=== PATIENT | female | born 1990 | race Two or more races ===

== ENCOUNTER 2024-04-07 17:15 | Emergency (ER) | payer MEDICAID, SELFPAY ==
[2024-04-07 17:16] VITALS: BMI 28.3
[2024-04-07 17:22] VITALS: BP 136/84; PULSE 55; RESP 16; TEMP 37.1; O2SAT 100
--- NOTE | 2024-04-07 17:45 | PD.EDRME ---
Rapid Medical Screening Exam [facility] Arrival date/time: 04/07/24 17:15 This is a 34-year-old female that comes into the emergency room with complaints of urinary frequency and urgency. Patient denies dysuria. Patient was just diagnosed with a UTI at the clinic. Patient was prescribed Macrobid and has been taking it for 2 days. Patient states she has had no relief in her symptoms. Patient also complains of low back pain and lower abdominal pain. Patient is on blood thinners because of an abnormal gene and was told that she had to be on blood thinners for life. I have greeted and performed a focused initial assessment of this patient. Initial appropriate labs ordered at this time. A comprehensive ED assessment and evaluation of the patient and analysis of all test and completion of medical decision making process will be conducted by additional ED provider. Chief Complaint: Abdominal Pain Time Seen by Provider: 04/07/24 17:36 Vital signs: Vital Signs Temperature 98.7 F 04/07/24 17:22 Pulse Rate 55 L 04/07/24 17:22 Respiratory Rate 16 04/07/24 17:22 Blood Pressure 136/84 H 04/07/24 17:22 Pulse Oximetry (%) 100 04/07/24 17:22 Oxygen Delivery Method Room Air 04/07/24 17:22 Vital signs reviewed by provider: Yes
[2024-04-07 18:21] LABS: Collection Type, Urine Voided
[2024-04-07 18:29] LABS: Bilirubin,Urine Negative (Negative); Blood,Urine Negative (Negative); Clarity,Urine Clear (Clear/Hazy); Color,Urine Colorless (Lt Yel-Yel); Culture Indicated,Urine Not Indicated; Glucose, Urine Negative (Negative); Ketones,Urine Negative (Negative); Leukocyte Esterase,Urine Positive (Negative); Nitrite,Urine Negative (Negative); Protein,Urine Negative (Neg - Trace); RBC,Urine 3 /hpf (0-3); Specific Gravity,Urine 1.008 (1.001-1.035); Squamous Epithelial Cell,Urine 1 /hpf (0-5); Urobilinogen,Urine Negative mg/dL (0.0-1.0); WBC,Urine 3 /hpf (0-5)
--- NOTE | 2024-04-07 19:14 | XR_ITS ---
Examination: CT abdomen and pelvis without contrast. Coronal 3-D reconstructions. Sagittal 2-D reconstructions. Date and time of exam:April 07, 2024 2114 hrs. Indications: Abdominal pain right-sided flank pain today CTDI: vol (mGy): 8.30 DLP: (mGycm): 462 Technique: Axial images of the abdomen have been obtained, 3 mm slice thickness Intravenous contrast material has not been administered. Low dose protocols were performed. One or more of the following dose reduction techniques were used; automated exposure control, adjustment of the mA and/or KV according to patient size, use of iterative reconstruction technique. Findings: No focal liver or splenic lesions Absent gallbladder No pancreatic or adrenal mass No renal or ureteral calculi, no hydronephrosis Aorta normal size No bowel obstruction No pericecal inflammatory change No diverticulitis No bladder mass or bladder calculi Solid mass in the pelvis posterior to the uterus, axial image 173, measuring 4 cm The osseous structures are intact Impression: No renal or ureteral calculi, no hydronephrosis Solid mass in the pelvis posterior to the uterus, 4 cm Recommend pelvic sonography follow-up
[2024-04-07 19:49] LABS: Basophils # (Auto) 0.1 Thou/mm3 (0.0-0.2); Basophils % (Auto) 1 % (0-2.5); Eosinophils # (Auto) 0.1 Thou/mm3 (0.0-0.5); Eosinophils % (Auto) 1 % (0-10); Hematocrit 38.6 % (36.0-46.0); Hemoglobin 13.2 g/dL (12.0-16.0); Immature Granulocytes % (Auto) 0 % (0-0); Immature Granulocytes Auto 0.01 Thou/mm3 (0.00-0.00); Lymphocytes # (Auto) 1.4 Thou/mm3 (1.0-4.8); Lymphocytes % (Auto) 20 % (10-50); Mean Corpuscular HGB Conc 34.2 g/dl (31.0-37.0); Mean Corpuscular Hemoglobin 28.9 pg (25.0-35.0); Mean Corpuscular Volume 85 fL (80-100); Monocytes # (Auto) 0.7 Thou/mm3 (0.0-0.8); Monocytes % (Auto) 10 % (0-12); Neutrophils # (Auto) 4.8 Thou/mm3 (1.8-7.7); Neutrophils % (Auto) 69 % (37-80); Nucleated Red Blood Cell % 0 /100 WBC (0); Platelet Count 186 Thou/mm3 (140-440); RDW Standard Deviation 44.6 fL (36.4-46.3); Red Blood Count 4.57 Miln/mm3 (4.00-5.20); White Blood Count 6.9 Thou/mm3 (3.6-11.0)
[2024-04-07] MEDS: HYDROcodone/APAP 5/325 TABLET 1 TAB PO (19:51)
[2024-04-07 20:11] LABS: Alanine Aminotransferase 13 U/L (10-49); Albumin, Serum 4.5 gm/dL (3.5-5.0); Albumin/Globulin Ratio 1.4 (1.2-2.2); Alkaline Phosphatase 83 U/L (46-116); Anion Gap 6 (7-16); Aspartate Amino Transferase 15 U/L (0-34); BUN/Creatinine Ratio 11 Ratio (12-20); Bilirubin,Total 0.5 mg/dL (0.3-1.2); Blood Urea Nitrogen 9 mg/dL (9-23); Calcium 9.9 mg/dL (8.3-10.6); Calcium (Corrected) 9.9 mg/dL (8.5-10.1); Carbon Dioxide 27.9 mMol/L (20.0-31.0); Chloride 107 mMol/L (98-107); Creatinine (Component) 0.8 mg/dL (0.6-1.3); Estimated Creatinine Clearance 93.7 mL/min (>60); Globulin 3.2 gm/dL (2.3-3.5); Glucose 89 mg/dL (74-106); Osmolality,Calculated 278 (275-295); Potassium 4.2 mMol/L (3.4-5.1); Sodium 141 mMol/L (136-145); Total Protein 7.7 gm/dL (5.7-8.2); eGFR > 60 See Note
[2024-04-07 20:31] LABS: HCG,Qualitative Serum Negative
--- NOTE | 2024-04-08 | XR_ITS ---
Examination: Pelvic ultrasound, transabdominal, complete Technique: Transabdominal ultrasound of the pelvis performed using grayscale imaging Date and time of exam: April 07, 2024 1150 hours INDICATIONS: Pelvic pain radiating to the back beginning 3 days ago FINDINGS: Uterus 9.6 x 3.5 x 6.9 cm Posterior uterine body mass 5.6 x 3.9 cm Endometrial stripe 0.2 cm Right ovary 3.2 cm arterial flow 24 mm cyst Left ovary 3.3 cm arterial flow IMPRESSION: Vascular uterine body mass 5.6 x 3.4 x 3.9 cm, recommend 6 month follow-up transvaginal pelvic sonography
--- NOTE | 2024-04-08 01:36 | PRELIM_ITS ---
Pelvic ultrasound (transabdominal). April 07, 2024 at 2350 hours Clinical history: Pelvic mass. Findings: The uterus is anteverted, measuring 9.6 x 3.4 x 6.9 cm. A hypoechoic mass is seen in the posterior aspect of the uterus, measuring 5.6 x 3.4 x 3.9 cm. The endometrium is unremarkable and measures 0.2 cm. The right ovary measures 3.2 x 2.5 x 3.6 cm and demonstrates a cyst/dominant follicle, measuring 1.9 x 1.2 x 2.4 cm. The left ovary measures 3.3 x 1.8 x 2.8 cm. Both ovaries demonstrate color flow and spectral waveforms on Doppler evaluation. There is no adnexal mass. A small amount of free fluid is seen in the posterior cul-de-sac. Impression: Hypoechoic mass in the posterior aspect of the uterus, likely representing a fibroid. Other findings as described above. Report Electronically Signed By: Tahir Alfred 04/08/2024 1:36:45 AM [EST]
--- NOTE | 2024-04-08 01:54 | EDNOTE_ITS ---
ED Abdominal Pain RME/HPI General Chief Complaint: Abdominal Pain Stated complaint: ABD PAIN RADIATING TO BACK x 2 DAYS Time seen by provider: 04/07/24 17:36 Arrival date/time: 04/07/24 17:15 34-year-old female with past medical history of abnormal gene and on blood thinners presents emergency department complaining of dysuria and right pelvic pain for several days. Patient reports was recently on Macrobid antibiotic for UTI with no relief of symptoms. Patient denies any fever, chills, vomiting, vaginal bleeding, or any other associated symptom. Limitations: no limitations RME / HPI RME / HPI narrative: 04/07/24 17:15 This is a 34-year-old female that comes into the emergency room with complaints of urinary frequency and urgency. Patient denies dysuria. Patient was just diagnosed with a UTI at the clinic. Patient was prescribed Macrobid and has been taking it for 2 days. Patient states she has had no relief in her symptoms. Patient also complains of low back pain and lower abdominal pain. Patient is on blood thinners because of an abnormal gene and was told that she had to be on blood thinners for life. I have greeted and performed a focused initial assessment of this patient. Initial appropriate labs ordered at this time. A comprehensive ED assessment and evaluation of the patient and analysis of all test and completion of medical decision making process will be conducted by additional ED provider. Related Data Home Medications ?Medication ?Instructions ?Recorded ?Confirmed rivaroxaban 20 mg tablet (Xarelto) 20 mg PO DAILY 03/3104/18/23 Previous Rx's ?Medication ?Instructions ?Recorded warfarin 5 mg tablet 5 mg PO QDAY #60 tabs Allergies Allergy/AdvReac Type Severity Reaction Status Date / Time No Known Allergies Allergy Verified 04/07/24 17:17 Review of Systems Review of Systems Systems Reviewed: All systems reviewed, normal except as documented Constitutional Constitutional: Reports system reviewed and no additional complaints, except as documented, Denies body ache(s), Denies chills and Denies fever(s) Eyes Eyes: Reports system reviewed and no additional complaints, except as documented and Denies change in vision ENT Ears, Nose, Mouth, and Throat: Reports system reviewed and no additional complaints, except as documented, Denies disequilibrium, Denies dizziness, Denies sore throat and Denies vertigo Cardiovascular Cardiovascular: Reports system reviewed and no additional complaints, except as documented, Denies chest pain and Denies dyspnea Respiratory Respiratory: Reports system reviewed and no additional complaints, except as documented, Denies chest congestion, Denies cough and Denies dyspnea Gastrointestinal Gastrointestinal: Reports system reviewed and no additional complaints, except as documented, Denies abdominal pain, Denies nausea and Denies vomiting Genitourinary Genitourinary: Reports pelvic pain and Reports other (Dysuria) Musculoskeletal Musculoskeletal: Reports system reviewed and no additional complaints, except as documented, Denies abnormal gait and Denies arthralgias Integumentary/Breasts Skin/Breast: Reports system reviewed and no additional complaints, except as documented, Denies erythema, Denies rash and Denies wounds Neurologic Neurologic: Reports system reviewed and no additional complaints, except as documented, Denies abnormal gait, Denies disequilibrium, Denies dizziness and Denies vertigo Past Medical History Past Medical History NEUROLOGIC: Negative Neurological Disorders or Seizures CARDIAC: Positive Deep Vein Thrombosis; Negative Cardiac Disorders or Congestive Heart Failure RESPIRATORY: Negative Chronic Obstructive Pulmonary Disease (COPD) or Asthma GASTROINTESTINAL: Positive Gastrointestinal Disorders and Gall Bladder Disease (removal); Negative Hepatitis or Colorectal Cancer GENITOURINARY: Negative Genitourinary Disorders or Renal Disease REPRODUCTIVE: Positive Previous Pregnancies; Negative Breast Cancer, Endometriosis or Pelvic Inflammatory Disease MUSCULOSKELETAL: Positive Fractures; Negative Musculoskeletal Disorders or Bone Cancer ENDOCRINE: Negative Endocrine Disorders, Diabetes Mellitus Type 1 or Diabetes Mellitus Type 2 HEMATOLOGIC: Positive Blood Disorders and Clotting Problems; Negative Sickle Cell Disease OTHER HISTORY: Positive Hospitalization and Chicken Pox; Negative Autoimmune Disease, Down Syndrome, Developmental Delay, Shingles, Falls, Blood Transfusions, Blood Transfusion Reaction, Anesthesia Reactions, Organ Transplant, Chemotherapy, Radiation Therapy, Hyperbaric Therapy, MRSA, VRSA, Vancomycin-Resistant Enterococci, Clostridium Difficile, Cancer, Breast Cancer, Cervical Cancer, Colorectal Cancer, Lung Cancer or Ovarian Cancer Family History FAMILY HISTORY: Positive Family Cancer and Family Surgery; Negative Family Psychiatric Problems, Family Respiratory Disorders, Family Cardiac Disorders, Family Gastrointestinal Problems or Family Anesthesia Reaction Surgical History SURGICAL: Negative Cardiac Surgery, Endocrine Surgery, Ear Surgery, Nephrectomy, Joint Replacement, Neurologic Surgery, Mastectomy, Lumpectomy, Hysterectomy, Tubal Ligation, Section or Organ Transplant Social History SMOKING STATUS: Never smoker ED Exam General Limitations: Present no limitations General appearance: Present alert and in no apparent distress Head Head exam: Present atraumatic Eye Eye exam: Present normal appearance, PERRL and EOMI ENT ENT exam: Present normal exam, normal oropharynx and mucous membranes moist Neck Neck exam: Present normal inspection, full ROM and trachea midline Chest Chest inspection: Present normal inspection and symmetric chest wall rise Respiratory Respiratory exam: Present normal lung sounds bilaterally Cardiovascular Cardiovascular exam: Present regular rate, normal rhythm and normal heart sounds Abdominal Exam Abdominal exam: Present soft and normal bowel sounds Extremities Exam Extremities exam: Present normal inspection and full ROM Back Exam Back exam: Present normal inspection and full ROM Neurological Exam Neurological exam: Present alert, oriented X3 and CN II-XII intact Psychiatric Psychiatric exam: Present normal affect and normal mood Skin Skin exam: Present warm, dry, intact and normal color Course Quality Measures none Orders Category Date Time Status CT abdomen pelvis wo con Stat Exams 04/07/24 19:14 Completed US pelvic complete Stat Exams 04/08/24 00:00 Taken CBC Stat Lab 04/07/24 19:39 Completed CMP [Comprehensive Metabolic Panel] Stat Lab 04/07/24 19:39 Completed HCG,Qualitative Serum Stat Lab 04/07/24 19:39 Completed Urinalysis, C/S if Indicated Stat Lab 04/07/24 17:50 Completed Urine Culture Stat Lab 04/07/24 17:50 Received HYDROcodone*/APAP 5/325 [[place] 5/325] Med 04/07/24 19:26 Discontinued 1 tab PO X1 ONE Ibuprofen Tab [Motrin Tab] Med 04/07/24 17:45 Discontinued 800 mg PO X1 ONE Vital Signs Vital signs: Vital Signs Temperature 98.7 F 04/07/24 17:22 Pulse Rate 55 L 04/07/24 17:22 Respiratory Rate 16 04/07/24 17:22 Blood Pressure 136/84 H 04/07/24 17:22 Pulse Oximetry (%) 100 04/07/24 17:22 Oxygen Delivery Method Room Air 04/07/24 17:22 100% room air within normal limits Abdominal Pain MDM MDM Narrative MDM Narrative:: 34-year-old female with past medical history of abnormal gene and on blood thi nners presents emergency department complaining of dysuria and right pelvic pain for several days. Patient reports was recently on Macrobid antibiotic for UTI with no relief of symptoms. Patient denies any fever, chills, vomiting, vaginal bleeding, or any other associated symptom. CBC was unremarkable for any leukocytosis or anemia. CMP was also unremarkable for any elevated LFTs or gross electrolyte abnormalities. CT abdomen solid mass to the pelvis and recommended ultrasound. Ultrasound pelvis impression hypoechoic mass in the posterior aspect of the uterus likely representing a fibroid with small amount of free fluid seen in the posterior cul-de-sac. Patient reported significant improvement in pain and symptoms after was given pain medication. Patient instructed to follow-up with primary care provider and request referral to [facility] which she reports she sees Dr Johnson. Instructed to return to emergency department for any worsening symptoms or as needed. Patient data External records reviewed:: [facility] previous records Clinical information provided by:: patient Social determinants that could affect healthcare access:: none Patient has the following chronic illnesses:: See chart How is presenting disease/condition affected by chronic disease/condition?: uneffected by Evaluation data The following diagnostics were reviewed and interpreted by me:: lab results and radiology exam(s) Lab and/or radiology exams considered but not ordered:: Ordered Interpretation Summary: Interpreted by me Medications / Prescriptions Medications or Prescriptions considered but not ordered:: Ordered Medication administrations:: Medication Administration History Discontinued Medications Hydrocodone Bitart/Acetaminophen (Hydrocodone/Apap 5/325 Tablet) 1 tab PO X1 ONE Stop: 04/07/24 19:27 Last Admin: 04/07/24 19:51 Dose: 1 tab Documented By: SHANNON Ibuprofen (Ibuprofen Tab 400 Mg Tablet) 800 mg PO X1 ONE Stop: 04/07/24 17:46 Last Admin: 04/07/24 17:57 Dose: Not Given Documented By: SHANNON Non-Admin Reason: Patient Refused Give Consultations Consultation(s) initiated? (list below): No Diagnosis Differential diagnosis abdominal pain: abdominal pain, acute appendicitis, calculus of kidney, constipation, diverticulitis, endometriosis, gastroenteritis, pancreatitis and small bowel obstruction Most likely diagnosis given after review of the tests above:: Uterine fibroids Admission Indicated Admission indicated?: not indicated Admission Request Was there a request for admission?: No Disposition Plan Disposition Plan: Discharge Discharge Attestation Discharge Attestation: The patient and all family members were given an opportunity to ask questions and understood the discharge instructions. Discharge instructions specifically effects, indications for sooner follow up or return to the emergency department, and the expected course of current diagnosis. Patient condition: Stable Discharge Plan Plan Patient Disposition: HOME (Self Care) Disposition Comment: Stable Prescriptions/Referrals Prescriptions/Med Rec: No Action Xarelto 20 mg tablet 20 mg PO DAILY Patient Comments: take 1 tablet by mouth once daily warfarin 5 mg tablet 5 mg PO QDAY MDD 1 Qty: 60 0RF Referrals: No Primary/Family,Physician [Primary Care Provider] - In 1 week Problem List Clinical Impression: Fibroid, uterine Patient/Caregiver Discharge Instructions Discharge Activity: activity as tolerated Education Materials: ED Uterine Fibroids Additional Instructions: Take Tylenol as needed for pain. Follow-up with primary care provider request referral to [facility] as discussed. Return to emergency department for any worsening symptoms or as needed. Print Language: German Stand Alone Forms: Juliette Award Info., Patient Portal Info Letter PA/CONTROL OPERATOR Supervising Physician PA/CONTROL OPERATOR Supervising Physician: Dr. Hardy
[2024-04-08 02:04] VITALS: RESP 18
== END 2024-04-08 02:05 | disposition home or self-care (01) ==
PROVIDERS: Nurse Practitioner Family; Emergency Provider Emergency Medicine
DX: D25.9 Leiomyoma of uterus, unspecified (principal)
CPT/HCPCS: 36415; 74176; 76856; 80053; 81001; 84703; 85025; 87086; 99284; A9270

== ENCOUNTER 2024-04-16 10:30 | Day surgery (SDC) | payer MEDICAID, SELFPAY ==
--- NOTE | 2024-04-10 09:28 | ESHP_ITS ---
RE: MISA SMITH : 1990 DATE OF ADMISSION: 04/16/2024 HISTORY OF PRESENT ILLNESS: This is a 34-year-old 2, para 2 with acute onset of right pelvic pain who is found to have a right adnexal mass and is presenting for surgical removal. The patient has a history of a prothrombin gene mutation increasing her risk for coagulopathy and she has a history of a deep vein thrombosis. The patient normally takes warfarin 10 mg daily; however, her last dosing in preparation for her surgery was on 04/06/2024. The patient in her imaging also appears to have a hematometria. She has a history of an endometrial ablation with amenorrhea as a result. ALLERGIES: NO KNOWN DRUG ALLERGIES. MEDICATIONS: Warfarin 10 mg one p.o. daily. 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 The patient's BRCA 1 and 2 gene mutation was negative. Asthma. PAST SURGICAL HISTORY: Laparoscopic cholecystectomy and herniorrhaphy. 2018, hysteroscopy, fractional dilatation and curettage and NovaSure endometrial ablation. FAMILY HISTORY: Mother, ovarian cancer. Maternal grandmother, breast cancer. OBSTETRIC HISTORY: Two previous full-term normal vaginal deliveries. REVIEW OF SYSTEMS: She denies any chest pain, palpitations, cough, fever, shortness of breath or lower extremity pain. PHYSICAL EXAMINATION: VITAL SIGNS: Blood pressure is 110/70, heart rate 88, respirations 18, temperature 98.2. HEENT: Oropharynx and sclerae are clear. LUNGS: Clear to auscultation bilaterally. HEART: Regular rate and rhythm. ABDOMEN: Nontender. Old scars noted. EXTREMITIES: Nontender. SKIN: No gross rashes or lesion. NEUROLOGIC: No focal deficit. ASSESSMENT AND PLAN: Acute pelvic pain, right adnexal mass, hematometria. Plan is diagnostic laparoscopy, possible laparotomy, right ovarian cystectomy, possible oophorectomy, hysteroscopy, fractional dilatation and curettage, evacuation of hematometria. Informed consent was obtained. The patient made aware of the risks, complications, alternatives, and benefits of the proposed procedure. She agrees. She is aware of the risk of injury to bowel or bladder, uterus, ureters, pulmonary embolism, deep vein thrombosis, injury to the vessels of the abdominal wall, hematoma, abscess, wound infection, wound dehiscence, pelvic infection, reoperation, repair, injury to internal organs, anesthesia complications, the possibility that a laparotomy needs to be performed to complete the procedure or control bleeding, and the possibility the procedure is not able to be completed due to severe adhesions or technical difficulties. DT: 07:19:22 TT: 09:28:00 Ref: [id number] - TID: [id number] MTDFranck
[2024-04-10 12:41] VITALS: BMI 28.8
[2024-04-11 05:43] LABS: Basophils % (Auto) 1 % (0-2.5); Eosinophils # (Auto) 0.2 Thou/mm3 (0.0-0.5); Eosinophils % (Auto) 3 % (0-10); Hematocrit 42.9 % (36.0-46.0); Hemoglobin 14.4 g/dL (12.0-16.0); Immature Granulocytes % (Auto) 0 % (0-0); Immature Granulocytes Auto 0.02 Thou/mm3 (0.00-0.00); Lymphocytes % (Auto) 36 % (10-50); Mean Corpuscular HGB Conc 33.6 g/dl (31.0-37.0); Mean Corpuscular Hemoglobin 28.5 pg (25.0-35.0); Mean Corpuscular Volume 85 fL (80-100); Monocytes # (Auto) 0.5 Thou/mm3 (0.0-0.8); Monocytes % (Auto) 9 % (0-12); Neutrophils # (Auto) 2.9 Thou/mm3 (1.8-7.7); Neutrophils % (Auto) 52 % (37-80); Nucleated Red Blood Cell % 0 /100 WBC (0); Platelet Count 205 Thou/mm3 (140-440); RDW Standard Deviation 43.8 fL (36.4-46.3); Red Blood Count 5.05 Miln/mm3 (4.00-5.20); White Blood Count 5.6 Thou/mm3 (3.6-11.0)
[2024-04-11 06:08] LABS: Alanine Aminotransferase 12 U/L (10-49); Albumin, Serum 4.8 gm/dL (3.5-5.0); Albumin/Globulin Ratio 1.5 (1.2-2.2); Alkaline Phosphatase 85 U/L (46-116); Anion Gap 7 (7-16); Aspartate Amino Transferase 13 U/L (0-34); BUN/Creatinine Ratio 13 Ratio (12-20); Beta HCG,Quantitative < 1 mIU/mL (<5.0); Bilirubin,Total 1.1 mg/dL (0.3-1.2); Blood Urea Nitrogen 10 mg/dL (9-23); Calcium 9.9 mg/dL (8.3-10.6); Calcium (Corrected) 9.9 mg/dL (8.5-10.1); Carbon Dioxide 28.6 mMol/L (20.0-31.0); Chloride 105 mMol/L (98-107); Creatinine (Component) 0.8 mg/dL (0.6-1.3); Estimated Creatinine Clearance 94.5 mL/min (>60); Globulin 3.2 gm/dL (2.3-3.5); Glucose 93 mg/dL (74-106); Osmolality,Calculated 280 (275-295); Sodium 141 mMol/L (136-145); eGFR > 60 See Note
[2024-04-11 06:43] LABS: INR 2.1 (0.9-1.3); Partial Thromboplastin Time 35.8 Seconds (22.0-36.0); Prothrombin Time 21.4 Seconds (9.0-12.2)
--- NOTE | 2024-04-12 15:00 | SUR.PREOP ---
Pt notified to come in at 1200 Monday for surgery.
[2024-04-16] VITALS (7 sets, daily range): BP systolic 102–140; BP diastolic 58–72; PULSE 55–77; RESP 12–20; TEMP 36.2–36.6; O2SAT 99–100; BMI 29.0
[2024-04-16 11:37] LABS: Partial Thromboplastin Time 25.1 Seconds (22.0-36.0); Prothrombin Time 11.3 Seconds (9.0-12.2)
--- NOTE | 2024-04-16 14:34 | SUR.PHASEI ---
pt received from OR in recovery bay 4. pt asleep but responds to voice, breathing unlabored on oxymask 8l. v/s stable. pt dressing dermabond x3 to abd cdi. report received from David Kaufman and Dr. Landa.
[2024-04-16] MEDS: fentaNYL CIT INJ 50 mCg/ML AMP 2ML IV (14:52)
--- NOTE | 2024-04-16 14:55 | SUR.PHASEI ---
pt able to toelrate oral fludids without difficulty swallowing or nausea/vomiting.
--- NOTE | 2024-04-16 15:53 | SUR.PHASEII ---
pt awake and alert, breathing unlabored on room air. v/s stable. pt dressing to abd x3 cdi. pt able to ambulate to wheelchair with steady gait. d/c instructions given with mother Aliza in room, all questions answered. pt d/c via wheelchair with all belongings.
--- NOTE | 2024-04-17 08:16 | ESOP_ITS ---
RE: MISA SMITH : 1990 DATE OF OPERATION: 04/16/2024 PREOPERATIVE DIAGNOSES: Right ovarian cyst and hematometra. POSTOPERATIVE DIAGNOSES: Right ovarian cyst and hematometra. PROCEDURES PERFORMED: Diagnostic laparoscopy, right ovarian cystectomy, and endocervical dilation and evacuation of hematometra. SURGEON: Ab Johnson DO EQUESTRIAN TRAINER: TREVOR Hu ANESTHESIA: General. ANESTHESIOLOGIST: Otilio Landa MD ESTIMATED BLOOD LOSS: 10 mL. COMPLICATIONS: None. COUNTS: Correct. PATHOLOGY: Right ovarian cyst. FINDINGS: A 5 x 5 cm right hemorrhagic ovarian cyst and possible endometrioma. A 20 mL of hemorrhagic fluid evacuated from the uterine cavity with dilation of the endocervix. Normal-appearing uterus, bilateral fallopian tubes and left ovary. No pelvic adhesions. Endocervix was stenotic. When dilated, the blood in the uterine cavity drained. DESCRIPTION OF PROCEDURE: After appropriate informed consent was obtained and the patient was made aware of the risks, complications, alternatives and benefits of the proposed procedure, she was taken to the operating room where she underwent induction of general anesthesia. She was placed in the dorsal lithotomy position. She was prepped and draped in the usual sterile fashion. A timeout was performed. A speculum was placed in the vagina. Single-tooth tenaculum was used to grasp the anterior lip of the cervix. The cervix was dilated to 5 mm and the hematometra was evacuated. The [place] uterine manipulator was placed. Attention was then turned to the abdomen where the physician regowned and gloved and a 5 mm incision was made in the umbilical fold. With tenting up of the abdomen, a Veress needle was inserted. Saline confirmed intra-abdominal placement. Artificial pneumoperitoneum was created to 12 mmHg. The trocar was inserted. The laparoscope connected with video camera was then utilized to visualize the pelvis. A second and third incision was made in the midline 2 cm above the symphysis pubis. A 10-mm incision was made and a 10- mm trocar was inserted under direct visualization of the laparoscope. Attention was then turned to the left lower quadrant where a 5-mm incision was made and through this 5 mm incision, a 5 mm trocar was inserted under direct visualization of the laparoscope. Using the Harmonic scalpel 1136 nicole, the right ovarian cystectomy was performed and the specimen was removed through the Endopouch and submitted to pathology. Hemostasis was achieved. The pelvis was irrigated with normal saline solution and the fluid evacuated. The fascia was closed with 2-0 Vicryl and the incisions were closed with 4-0 Monocryl after the carbon dioxide was evacuated. Each incision was infiltrated with Marcaine 0.5% with epinephrine. Attention was then turned to the vagina where the uterine manipulator was removed as well as the tenaculum on the anterior lip of the cervix. There was no bleeding at the end of the procedure. She was reversed from general anesthesia in the supine position and transferred to the recovery room in stable condition. She tolerated the procedure well. Counts were correct. I discussed with the patient's family the nature of her condition, the intraoperative findings, and expectations for recovery. All questions answered. DT: 14:29:33 TT: 18:14:00 Ref: [id number] - TID: [id number]
== END 2024-04-16 15:53 | disposition home or self-care (01) ==
PROVIDERS: Anesthesiology; PCP Family Medicine; Referring Provider Specialist; Visit Provider Specialist
PROC: (CPT 58925; principal; 2024-04-16 14:15)
PROC: 0UJD8ZZ Inspection of Uterus and Cervix, Via Natural or Artificial Opening Endoscopic (ICD-10-PCS; CPT 58555; 2024-04-16 14:15)
DX: N83.11 Corpus luteum cyst of right ovary (principal); N85.7 Hematometra; Z79.01 Long term (current) use of anticoagulants; J45.909 Unspecified asthma, uncomplicated; Z80.3 Family history of malignant neoplasm of breast; Z86.718 Personal history of other venous thrombosis and embolism
CPT/HCPCS: 58662; 36415; 80053; 84702; 85025; 85610; 85730; 86850; 86900; 86901; A4217; A4649; J0131; J0690; J1100; J2250; J2371; J2405; J2704; J2710; J3010; J3490; J1596; J2598